=== PATIENT | male | born 1960 | race African-American/Black ===

== ENCOUNTER 2018-05-09 14:05 | Inpatient (IN) | payer OTHER ==
[2018-05-09 17:21] VITALS: BMI 26.6
--- NOTE | 2018-05-10 02:20 | HP ---
CIWA Score - CIWA Score Nausea/Vomitin-No Nausea/No Vomiting Muscle Tremors: None Anxiety: 3 Agitation: 4-Moderately Restless Paroxysmal Sweats: No Perspiration Orientation: 3-Disoriented Date>2 days Tacttile Disturbances: 0-None Auditory Disturbances: 2-Mild Harshness/Frighten Visual Disturbances: 2-Mild Sensitivity Headache: 0-None Present CIWA-Ar Total Score: 14 Admission ROS S - HPI Chief Complaint: C/O WITHDRAWAL SX'S. SEEKING DETOX FOR ALCOHOL Allergies/Adverse Reactions: Allergies Allergy/AdvReac Type Severity Reaction Status Date / Time No Known Allergies Allergy Verified 05/10/18 02:11 History of Present Illness: 58 Y.O. MALE WITH ALCOHOLISM HERE FOR DETOX. THIS IS CLIENTS FIRST TIME HERE. REPORTS LAST DETOX OVER 20 YEARS AGO. REFERRED BY A FRIEND. REPORTS LONGEST CLEAN TIME 19 YEARS RELAPSING 3 MONTHS AGO.DENIES SOB, C.P., SEIZURE D/O, AVH, PAST/PRESENT SI/HI. C/O WITHDRAWAL SX'S CIWA 17. PMHX: DM, PSYCH: DENIES Exam Limitations: No Limitations - Ebola screening Have you traveled outside of the country in the last 21 days: No Have you had contact with anyone from an Ebola affected area: No Have you been sick,other than usual withdrawal symptoms: No Do you have a fever: No - Review of Systems Constitutional: Chills, Night Sweats, Changes in sleep, Unintentional Wgt. Loss EENT: reports: No Symptoms Reported Respiratory: reports: No Symptoms reported Cardiac: reports: No Symptoms Reported GI: reports: Poor Fluid Intake : reports: No Symptoms Reported Musculoskeletal: reports: No Symptoms Reported Integumentary: reports: No Symptoms Reported Neuro: reports: Pre-Existing Deficit Endocrine: reports: No Symptoms Reported Hematology: reports: No Symptoms Reported Psychiatric: reports: Depressed Other Systems: Reviewed and Negative Patient History - Patient Medical History Hx Anemia: No Hx Asthma: No Hx Chronic Obstructive Pulmonary Disease (COPD): No Hx Cancer: No Hx Cardiac Disorders: No Hx Congestive Heart Failure: No Hx Hypertension: No Hx Hypercholesterolemia: No Hx Pacemaker: No HX Cerebrovascular Accident: No Hx Seizures: No Hx Diabetes: Yes (METFORMIN) Hx Gastrointestinal Disorders: No Hx Liver Disease: No Hx Genitourinary Disorders: No Hx Sexually Transmitted Disorders: No Hx Renal Disease (ESRD): No Hx Thyroid Disease: No Hx Human Immunodeficiency Virus (HIV): No Hx Hepatitis C: No Hx Depression: No Hx Suicide Attempt: No Hx Bipolar Disorder: No Hx Schizophrenia: No Other Medical History: DENIES - Patient Surgical History Past Surgical History: No - PPD History Previous Implant?: No Documented Results: Negative w/o proof Implanted On Prior R Admission?: No PPD to be Administered?: Yes - Smoking Cessation Smoking history: Current every day smoker Have you smoked in the past 12 months: Yes Aproximately how many cigarettes per day: 20 Cigars Per Day: 0 Hx Chewing Tobacco Use: No Initiated information on smoking cessation: Yes 'Breaking Loose' booklet given: 05/10/18 - Substance & Tx. History Hx Alcohol Use: Yes Hx Substance Use: Yes Substance Use Type: Alcohol, Cocaine Hx Substance Use Treatment: Yes (DOES NOT RECALL) - Substances Abused BEER/VODKA Route: Oral Frequency: Daily Amount used: 2QUARTS/ 1PINT Age of first use: 21 Date of Last Use: 05/08/18 COCAINE Route: Smoking Frequency: Daily Amount used: $400 Age of first use: 21 Date of Last Use: 05/08/18 Admission Physical Exam S - Vital Signs Vital Signs: Vital Signs - 24 hr 05/09/18 17:19 Temperature 97.3 F L Pulse Rate 93 H Respiratory 20 Rate Blood Pressure 140/81 - Physical General Appearance: Yes: Appropriately Dressed, Mild Distress, Irritable HEENTM: Yes: EOMI, Normocephalic, Normal Voice, GENTRY, Pharynx Normal, Other ( POOR DENTITION) Respiratory: Yes: Chest Non-Tender, Lungs Clear, Normal Breath Sounds, No Respiratory Distress, No Accessory Muscle Use Neck: Yes: No masses,lesions,Nodules, Supple, Trachea in good position Breast: Yes: Breast Exam Deferred Cardiology: Yes: Regular Rhythm, Regular Rate, S1, S2 Abdominal: Yes: Non Tender, Soft, Increased Bowel Sounds, Protuberent Genitourinary: Yes: Other (DENIES) Back: Yes: Normal Inspection Musculoskeletal: Yes: full range of Motion, Gait Steady Extremities: Yes: Normal Capillary Refill, Normal Inspection, Normal Range of Motion, Non-Tender Neurological: Yes: Alert, Motor Strength 5/5, Depressed Affect Integumentary: Yes: Warm, Other (FORMICATION) Lymphatic: Yes: Within Normal Limits - Diagnostic (1) Alcohol dependence with uncomplicated withdrawal Current Visit: Yes Status: Acute (2) Cocaine abuse, uncomplicated Current Visit: Yes Status: Chronic (3) Nicotine dependence Current Visit: Yes Status: Chronic Qualifiers: Nicotine product type: cigarettes Substance use status: uncomplicated Qualified Code(s): F17.210 - Nicotine dependence, cigarettes, uncomplicated (4) At risk for dehydration due to poor fluid intake Current Visit: Yes Status: Acute (5) Formication Current Visit: Yes Status: Chronic (6) Diabetes Current Visit: Yes Status: Acute Qualifiers: Diabetes mellitus type: type 2 Cleared for Admission [facility] - Detox or Rehab [facility] Level of Care: Medically Managed Detox Regimen/Protocol: Librium Claeared for Rehab Admission: No S Breath Alcohol Content Breath Alcohol Content: 0 Urine Drug Screen - Results Drug Screen Negative: No Urine Drug Screen Results: SUSANNA-Cocaine
[2018-05-10] MEDS ORDERED: chlordiazePOXIDE HCL 25 MG CAPSULE PO PRN (03:55)
[2018-05-10] MEDS ORDERED: MAGNESIUM CITRATE 300 ML BOTTLE PO PRN (03:55)
[2018-05-10] MEDS ORDERED: MAG HYDROX/AL HYDROX/SIMETH 30 ML UNIT-DOSE CUP PO PRN (03:55)
[2018-05-10] MEDS ORDERED: MENTHOL/PHENOL 1 EACH UD MM PRN (03:55)
[2018-05-10] MEDS ORDERED: guaiFENesin/D-METHORPHAN HB 10 ML UNIT-DOSE CUPS PO PRN (03:55)
[2018-05-10] MEDS ORDERED: IBUPROFEN 400 MG TABLET (FP) PO PRN (03:55)
[2018-05-10] MEDS ORDERED: NICOTINE POLACRILEX 2 MG GUM BUC PRN (03:55)
[2018-05-10] MEDS ORDERED: hydrOXYzine PAMOATE 50 MG CAPSULE (FP) PO PRN (03:55)
[2018-05-10] MEDS ORDERED: P-EPHED 60MG/TRIPROLIDI 2.5MG TABLET PO PRN (03:55)
[2018-05-10] MEDS ORDERED: ACETAMINOPHEN 325 MG TABLET (FP) PO PRN (03:55)
[2018-05-10] MEDS ORDERED: LOPERAMIDE HCL 2 MG CAPSULE PO PRN (03:55)
[2018-05-10] MEDS ORDERED: MAGNESIUM HYDROX 2400MG/30ML ORAL SUSPENSION 30 ML CUP PO PRN (03:55)
[2018-05-10] MEDS: chlordiazePOXIDE HCL 25 MG CAPSULE PO SCH ×4 (04:10→23:27)
[2018-05-10 10:24] LABS: HEMOGLOBIN 12.7 GM/dL (11.7-16.9); MCH 28.7 pg (25.7-33.7); MCHC 32.6 g/dl (32.0-35.9); MEAN CELL VOLUME 87.9 fl (80-96); MEAN PLT VOLUME 7.7 fl (7.5-11.1); PLATELET COUNT 291 K/MM3 (134-434); RBC 4.44 M/mm3 (4.00-5.60); RDW 13.3 % (11.9-15.9); WHITE BLOOD COUNT 8.5 K/mm3 (4.0-10.0)
[2018-05-10] MEDS: PRENATAL VITAMINS W/ FOLIC ACID TABLET (FP) PO SCH (10:40)
[2018-05-10] MEDS: NICOTINE 21 MG/24 HOURS TOPICAL PATCH TD SCH (10:40)
[2018-05-10 10:46] LABS: CHLORIDE 102 mmol/L (98-107); POTASSIUM 4.4 mmol/L (3.5-5.1); SODIUM 140 mmol/L (136-145)
[2018-05-10 11:03] LABS: ALBUMIN 2.1 g/dl (3.4-5.0); ALK PHOS 108 U/L (45-117); ANION GAP 6 MMOL/L (8-16); BILIRUBIN,TOTAL 0.5 mg/dL (0.2-1.0); BLOOD UREA NITROGEN 29 mg/dL (7-18); CALCIUM 8.4 mg/dL (8.5-10.1); CO2 32 mmol/L (21-32); CREATININE 1.3 mg/dL (0.7-1.3); SGOT/AST 25 U/L (15-37); SGPT/ALT 25 U/L (12-78); TOT PROT 5.6 g/dl (6.4-8.2)
[2018-05-10 11:35] LABS: GLUCOSE,RANDOM 344 mg/dL (74-106)
--- NOTE | 2018-05-10 12:30 | EKG ---
Test Reason : Blood Pressure : / mmHG Vent. Rate : 090 BPM Atrial Rate : 090 BPM P-R Int : 152 ms QRS Dur : 096 ms QT Int : 348 ms P-R-T Axes : 061 008 019 degrees QTc Int : 425 ms NORMAL SINUS RHYTHM NORMAL ECG NO PREVIOUS ECGS AVAILABLE Confirmed by DARLINE FOREMAN, NILSA ([id number]) on 05/10/2018 12:30:12 PM Referred By: Confirmed By:NILSA GREGORIO MD
--- NOTE | 2018-05-10 13:21 | PN ---
[facility] CIWA - CIWA Score Nausea/Vomitin-No Nausea/No Vomiting Muscle Tremors: 4-Moderate,w/Arms Extend Anxiety: 5 Agitation: 5 Paroxysmal Sweats: 1-Minimal Palms Moist Orientation: 0-Oriented Tacttile Disturbances: 0-None Auditory Disturbances: 0-None Visual Disturbances: 0-None Headache: 0-None Present CIWA-Ar Total Score: 15 [facility] Progress Note (SOAP) Subjective: PT C/O " I DON'T FEEL GOOD"- RESTLESSNESS, ANXIETY,TREMORS,SWEATS,FATIGUE. Objective: 05/10/18 13:20 Vital Signs 05/10/18 05/10/18 06:30 09:05 Temperature 97.4 F L Pulse Rate 87 Respiratory 18 20 Rate Blood Pressure 145/86 Laboratory Tests 05/10/18 05/10/18 05/10/18 04:07 07:30 07:30 WBC 8.5 RBC 4.44 Hgb 12.7 Hct 39.0 MCV 87.9 MCH 28.7 MCHC 32.6 RDW 13.3 Plt Count 291 MPV 7.7 Sodium 140 Potassium 4.4 Chloride 102 Carbon Dioxide 32 Anion Gap 6 L BUN 29 H Creatinine 1.3 Creat Clearance w eGFR 56.90 POC Glucometer 293 Random Glucose 344 H* Calcium 8.4 L Total Bilirubin 0.5 AST 25 ALT 25 Alkaline Phosphatase 108 Total Protein 5.6 L Albumin 2.1 L RPR Titer 05/10/18 05/10/18 07:30 11:48 WBC RBC Hgb Hct MCV MCH MCHC RDW Plt Count MPV Sodium Potassium Chloride Carbon Dioxide Anion Gap BUN Creatinine Creat Clearance w eGFR POC Glucometer 326 Random Glucose Calcium Total Bilirubin AST ALT Alkaline Phosphatase Total Protein Albumin RPR Titer Nonreactive Assessment: 05/10/18 13:20 WITHDRAWAL SX Plan: CONTINUE DETOX
--- NOTE | 2018-05-10 17:59 | CONSULT ---
[facility] Psychiatric Consult - Data Date of interview: 05/10/18 Admission source: [facility] Identifying data: Firts admission to [facility] for this 58 y/o AA male, self- referred for detoxification treatment (alcohol,cocaine dependence).Currently on [address].Patient is single without dependents,homeless,uneployed and deprived on income. Substance Abuse History: Discussed with the patient in this interview.Mr Hensley confirmed a long-standing history of crack + alcohol dependence.Details in current [facility] report : Smoking history: Current every day smoker. Have you smoked in the past 12 months: Yes. Aproximately how many cigarettes per day: 20. Cigars Per Day: 0. Hx Chewing Tobacco Use: No. Initiated information on smoking cessation: Yes. 'Breaking Loose' booklet given: 05/10/18. - Substance & Tx. History. Hx Alcohol Use: Yes. Hx Substance Use: Yes. Substance Use Type : Alcohol, Cocaine. Hx Substance Use Treatment: Yes (DOES NOT RECALL). - Substances Abused. BEER/VODKA. Route: Oral. Frequency: Daily. Amount used : 2QUARTS/ 1PINT. Age of first use: 21. Date of Last Use: 05/08/18. COCAINE. Route: Smoking. Frequency: Daily. Amount used: $400. Age of first use: 21. Date of Last Use: 05/08/18 Medical History: Diabetes mellitus. Psychiatric History: Patient denies. Physical/Sexual Abuse/Trauma History: Patient denies. Additional Comment: Urine Drug Screen Results: SUSANNA-Cocaine.Noted. Mental Status Exam - Mental Status Exam Alert and Oriented to: Time, Place, Person Cognitive Function: Grossly Intact Patient Appearance: Unkempt, Disheveled Mood: Hostile, Withdrawn, Irritable Affect: Mood Congruent Patient Behavior: Fatigued, Uncooperative Speech Pattern: Clear Voice Loudness: Normal Thought Process: Goal Oriented Thought Disorder: Not Present Hallucinations: Denies Suicidal Ideation: Denies Homicidal Ideation: Denies Insight/Judgement: Poor Sleep: Well Appetite: Good Gait/Station: Other (not observed ; in bed for the entire morning shift) Psychiatric Findings - Problem List ([place] 1, 2,3) (1) Alcohol dependence with uncomplicated withdrawal Current Visit: Yes Status: Acute (2) Cocaine dependence Current Visit: Yes Status: Acute (3) Nicotine dependence Current Visit: Yes Status: Acute Qualifiers: Nicotine product type: cigarettes Substance use status: in withdrawal Qualified Code(s): F17.213 - Nicotine dependence, cigarettes, with withdrawal - Initial Treatment Plan Initial Treatment Plan: Psychoeducation when patient becomes more coperative.Attempt made to discuss sleep hygiene : patient not receptive.Detoxification in progress.Observation.
[2018-05-10] MEDS: metFORMIN HCL 500 MG TABLET (FP) PO SCH (18:14)
[2018-05-10] MEDS ORDERED: INSULIN (NOVOLOG) ASPART 100 UNITS/ML 10ML VIAL ONE (21:52)
[2018-05-10] MEDS ORDERED: MELATONIN 5 MG TABLETS PO PRN (22:00)
[2018-05-10] MEDS: THIAMINE HCL 100 MG TABLET (FP) PO SCH (23:16)
[2018-05-10] MEDS: INSULIN SLIDING SCALE (NOVOLOG) 1 VIAL SQ SCH (23:26)
[2018-05-11] MEDS: chlordiazePOXIDE HCL 25 MG CAPSULE PO SCH ×4 (06:29→22:48)
[2018-05-11] MEDS: metFORMIN HCL 500 MG TABLET (FP) PO SCH ×2 (07:26→17:16)
[2018-05-11] MEDS: INSULIN SLIDING SCALE (NOVOLOG) 1 VIAL SQ SCH ×4 (07:31→22:46)
[2018-05-11] MEDS: PRENATAL VITAMINS W/ FOLIC ACID TABLET (FP) PO SCH (11:45)
[2018-05-11] MEDS: NICOTINE 21 MG/24 HOURS TOPICAL PATCH TD SCH (11:45)
[2018-05-11] MEDS ORDERED: INSULIN (NOVOLOG) ASPART 100 UNITS/ML 10ML VIAL ONE ×3 (12:32→21:59)
--- NOTE | 2018-05-11 14:03 | PN ---
[facility] CIWA - CIWA Score Nausea/Vomitin-No Nausea/No Vomiting Muscle Tremors: 4-Moderate,w/Arms Extend Anxiety: 4-Mod. Anxious/Guarded Agitation: 4-Moderately Restless Paroxysmal Sweats: 1-Minimal Palms Moist Orientation: 0-Oriented Tacttile Disturbances: 0-None Auditory Disturbances: 0-None Visual Disturbances: 0-None Headache: 0-None Present CIWA-Ar Total Score: 13 [facility] Progress Note (SOAP) Subjective: PT C/O DROWSINESS. LIBRIUM HELD PER NURSE. PT IS ALERT O X 3. NAD. Objective: 05/11/18 14:02 Vital Signs 05/11/18 05/11/18 06:26 10:41 Temperature 97 F L 98.8 F Pulse Rate 74 70 Respiratory 16 18 Rate Blood Pressure 162/87 162/93 Laboratory Tests 05/10/18 05/10/18 05/10/18 04:07 07:30 07:30 WBC 8.5 RBC 4.44 Hgb 12.7 Hct 39.0 MCV 87.9 MCH 28.7 MCHC 32.6 RDW 13.3 Plt Count 291 MPV 7.7 Sodium 140 Potassium 4.4 Chloride 102 Carbon Dioxide 32 Anion Gap 6 L BUN 29 H Creatinine 1.3 Creat Clearance w eGFR 56.90 POC Glucometer 293 Random Glucose 344 H* Calcium 8.4 L Total Bilirubin 0.5 AST 25 ALT 25 Alkaline Phosphatase 108 Total Protein 5.6 L Albumin 2.1 L RPR Titer 05/10/18 05/10/18 05/10/18 07:30 11:48 16:30 WBC RBC Hgb Hct MCV MCH MCHC RDW Plt Count MPV Sodium Potassium Chloride Carbon Dioxide Anion Gap BUN Creatinine Creat Clearance w eGFR POC Glucometer 326 278 Random Glucose Calcium Total Bilirubin AST ALT Alkaline Phosphatase Total Protein Albumin RPR Titer Nonreactive 05/10/18 05/11/18 05/11/18 21:35 07:20 11:43 WBC RBC Hgb Hct MCV MCH MCHC RDW Plt Count MPV Sodium Potassium Chloride Carbon Dioxide Anion Gap BUN Creatinine Creat Clearance w eGFR POC Glucometer 356 209 285 Random Glucose Calcium Total Bilirubin AST ALT Alkaline Phosphatase Total Protein Albumin RPR Titer Assessment: 05/11/18 14:02 WITHDRAWAL SX Plan: CONTINUE DETOX MONITOR PT INCREASE PO FLUIDS
[2018-05-11] MEDS: THIAMINE HCL 100 MG TABLET (FP) PO SCH (22:48)
[2018-05-12] MEDS: chlordiazePOXIDE 5 MG CAPSULE PO SCH ×4 (06:41→23:07)
[2018-05-12] MEDS: INSULIN SLIDING SCALE (NOVOLOG) 1 VIAL SQ SCH ×4 (07:30→22:06)
[2018-05-12] MEDS: metFORMIN HCL 500 MG TABLET (FP) PO SCH ×2 (07:30→17:43)
[2018-05-12] MEDS: NICOTINE 21 MG/24 HOURS TOPICAL PATCH TD SCH (11:41)
[2018-05-12] MEDS: PRENATAL VITAMINS W/ FOLIC ACID TABLET (FP) PO SCH (11:41)
--- NOTE | 2018-05-12 15:23 | PN ---
[facility] Progress Note (SOAP) Subjective: ANXIETY, SWEATS,CHILLS,FATIGUE. Objective: 05/12/18 15:22 Vital Signs 05/12/18 05/12/18 10:07 13:49 Temperature 98.4 F 96.4 F L Pulse Rate 63 82 Respiratory 18 18 Rate Blood Pressure 161/95 140/86 Assessment: 05/12/18 15:22 WITHDRAWAL SX Plan: CONTINUE DETOX
[2018-05-12] MEDS: THIAMINE HCL 100 MG TABLET (FP) PO SCH (23:07)
[2018-05-13] MEDS ORDERED: chlordiazePOXIDE HCL 10 MG CAPSULE PO SCH (05:00)
[2018-05-13] MEDS: INSULIN SLIDING SCALE (NOVOLOG) 1 VIAL SQ SCH (07:48)
[2018-05-13] MEDS: metFORMIN HCL 500 MG TABLET (FP) PO SCH (07:48)
[2018-05-13 09:32] VITALS: BP 147/80; PULSE 73; TEMP 96.7
--- NOTE | 2018-05-13 13:38 | DS ---
[facility] Detox Discharge Summary Admission Date: 05/10/18 Discharge Date: 05/13/18 - History Present History: Alcohol Dependence Additional Comments: DETOX COMPLETED. ALERT O X 3. NAD. PT WILL FOLLOW UP WITH PCP AT [facility]. Pertinent Past History: PLEASE SEE DX BELOW - Physical Exam Results Vital Signs: Vital Signs Temperature 96.7 F L 05/13/18 09:31 Pulse Rate 73 05/13/18 09:31 Respiratory Rate 18 05/13/18 09:31 Blood Pressure 147/80 05/13/18 09:31 O2 Sat by Pulse Oximetry (%) Pertinent Admission Physical Exam Findings: WITHDRAWAL SX Vital Signs 05/13/18 09:31 Temperature 96.7 F L Pulse Rate 73 Respiratory 18 Rate Blood Pressure 147/80 Laboratory Tests 05/10/18 05/10/18 05/10/18 04:07 07:30 07:30 WBC 8.5 RBC 4.44 Hgb 12.7 Hct 39.0 MCV 87.9 MCH 28.7 MCHC 32.6 RDW 13.3 Plt Count 291 MPV 7.7 Sodium 140 Potassium 4.4 Chloride 102 Carbon Dioxide 32 Anion Gap 6 L BUN 29 H Creatinine 1.3 Creat Clearance w eGFR 56.90 POC Glucometer 293 Random Glucose 344 H* Calcium 8.4 L Total Bilirubin 0.5 AST 25 ALT 25 Alkaline Phosphatase 108 Total Protein 5.6 L Albumin 2.1 L RPR Titer 05/10/18 05/10/18 05/10/18 07:30 11:48 16:30 WBC RBC Hgb Hct MCV MCH MCHC RDW Plt Count MPV Sodium Potassium Chloride Carbon Dioxide Anion Gap BUN Creatinine Creat Clearance w eGFR POC Glucometer 326 278 Random Glucose Calcium Total Bilirubin AST ALT Alkaline Phosphatase Total Protein Albumin RPR Titer Nonreactive 05/10/18 05/11/18 05/11/18 21:35 07:20 11:43 WBC RBC Hgb Hct MCV MCH MCHC RDW Plt Count MPV Sodium Potassium Chloride Carbon Dioxide Anion Gap BUN Creatinine Creat Clearance w eGFR POC Glucometer 356 209 285 Random Glucose Calcium Total Bilirubin AST ALT Alkaline Phosphatase Total Protein Albumin RPR Titer 05/11/18 05/11/18 05/12/18 16:31 21:13 11:54 WBC RBC Hgb Hct MCV MCH MCHC RDW Plt Count MPV Sodium Potassium Chloride Carbon Dioxide Anion Gap BUN Creatinine Creat Clearance w eGFR POC Glucometer 207 230 249 Random Glucose Calcium Total Bilirubin AST ALT Alkaline Phosphatase Total Protein Albumin RPR Titer 05/12/18 05/12/18 16:34 20:40 WBC RBC Hgb Hct MCV MCH MCHC RDW Plt Count MPV Sodium Potassium Chloride Carbon Dioxide Anion Gap BUN Creatinine Creat Clearance w eGFR POC Glucometer 213 299 Random Glucose Calcium Total Bilirubin AST ALT Alkaline Phosphatase Total Protein Albumin RPR Titer - Treatment Hospital Course: Detox Protocol Followed, Detoxed Safely, Responded well, Discharged Condition Good - Medication Discharge Medications: Ambulatory Orders Metformin HCl [Glucophage] 500 mg PO BID 05/10/18 - Diagnosis (1) Alcohol dependence with uncomplicated withdrawal Status: Acute (2) At risk for dehydration due to poor fluid intake Status: Acute (3) Diabetes Status: Chronic Qualifiers: Diabetes mellitus type: type 2 (4) Nicotine dependence Status: Acute Qualifiers: Nicotine product type: cigarettes Substance use status: in withdrawal Qualified Code(s): F17.213 - Nicotine dependence, cigarettes, with withdrawal - AMA Did Patient Leave Against Medical Advice: No
== END 2018-05-13 09:31 | disposition home or self-care (01) | DRG 774 ==
LOC: YASAS 14:05 → Y3N 05-10 03:02
PROC: HZ2ZZZZ Detoxification Services for Substance Abuse Treatment (ICD-10-PCS; principal; 2018-05-10)
DX: F10.230 Alcohol dependence with withdrawal, uncomplicated (principal); F14.20 Cocaine dependence, uncomplicated; F17.213 Nicotine dependence, cigarettes, with withdrawal; E11.9 Type 2 diabetes mellitus without complications; Z79.84 Long term (current) use of oral hypoglycemic drugs; R20.2 Paresthesia of skin; Z91.89 Other specified personal risk factors, not elsewhere classified
CPT/HCPCS: 36415; 80053; 82962; 85027; 86593; 93005; 93010